=== PATIENT | male | born 1960 | race Caucasian/White ===

== ENCOUNTER 2018-07-19 09:32 | Inpatient (IN) | payer BC ==
[~2018-07-19] VITALS: Ht 185.4 cm; Wt 105.2 kg
[2018-07-19 09:50] VITALS: BP 172/104
[2018-07-19 10:24] LABS: ABSOLUTE EOSINOPHILS 0.1 thou/uL (0.0-0.7); ABSOLUTE LYMPHOCYTES 1.3 thou/uL (0.8-5.3); ABSOLUTE NEUTROPHILS 8.9 thou/uL (1.6-8.1); BASOPHILS 0.2 %; EOSINOPHILS 0.7 %; HEMATOCRIT 45.5 % (42.0-52.0); HEMOGLOBIN 15.3 gm/dL (14.0-18.0); LYMPHOCYTES 11.9 %; MCH 29.7 pg (26.0-34.0); MCHC 33.6 g/dL (28.0-37.0); MCV 88.4 fL (80.0-100.0); MONOCYTES 8.4 %; MPV 7.7 fl. (7.2-11.1); NUCLEATED RBCS 0 /100WBC; PLATELET COUNT* 410 thou/uL (150-400); POLYS 78.8 %; RBC 5.15 mil/uL (4.50-6.00); RDW-CV 13.8 % (10.5-14.5); WBC 11.3 thou/uL (4.0-11.0)
[2018-07-19 10:29] LABS: CALCIUM 9.3 mg/dL (8.5-10.1); CREATININE 0.9 mg/dL (0.6-1.3); POTASSIUM 3.6 mmol/L (3.5-5.1)
[2018-07-19 10:34] LABS: ALBUMIN 3.9 g/dL (3.4-5.0); TOTAL BILIRUBIN 0.7 mg/dL (<0.1-1.0)
[2018-07-19 11:33] LABS: ESR (SEDRATE) 27 mm/hr (0-20)
[2018-07-19 13:35] LABS: BF RBC 1769 /mm3; TOTAL CELL COUNT 16240 /mm3
[2018-07-19 13:36] LABS: BF LYMPHOCYTES 4 %; BF MONOCYTES 12 %; BF POLYS 84 %
[2018-07-19 13:37] LABS: CLARITY SLIGHTLY HAZY; SOURCE LEFT KNEE; TOTAL VOLUME 15 ml
--- NOTE | 2018-07-19 14:21 | NUR ---
PT WAS GIVEN PERCOCET AND IS NOW C/O OF A RASH ON HIS FACE. DR. VANN NOTIFIED.
[2018-07-19 14:54] VITALS: BP 127/74
[2018-07-19 15:15] VITALS: BP 136/83
--- NOTE | 2018-07-19 18:28 | NUR ---
PATIENT ARRIVED FROM ER THIS AFTERNOON. PATIENT SETTLED TO ROOM AND HISTORY, ASSESSMENT AND VITALS COMPLETED AND DOCUMENTED. PATIENT HAD BEDSIDE KNEE ASPIRATION COMPLETED WITHOUT INCIDENT. PATIENT STATES PAIN IS MUCH BETTER SINCE ASPIRATION AND DENIES NEED FOR MEDICATION AT THIS TIME. PATIENT IS UP STANDBY ASSIST. PATIENT HAS CALL LIGHT WITHIN REACH. WILL CONTINUE TO MONITOR.
[2018-07-19 18:54] LABS: SOURCE LEFT KNEE
[2018-07-19 18:56] LABS: BF RBC 1695 /mm3; CLARITY HAZY; TOTAL CELL COUNT 24009 /mm3; TOTAL VOLUME 90 ml
[2018-07-19 19:23] LABS: BF MONOCYTES 6 %; BF POLYS 94 %
[2018-07-19 21:35] VITALS: BP 141/69
--- NOTE | 2018-07-20 04:27 | NUR ---
PATIENT HAS REMAINED ALERT AND ORIENTED X 4 THROUGHOUT THE SHIFT AND RESTING AT INTERVALS ON HOURLY ROUNDS. IVF'S AND ANTIBIOTICS PER ORDERS. MEDICATED FOR PAIN X 3 TO GOOD EFFECT. LOOSENED STACEY WRAP MINAMALLY AT 0100 AND PROVIDED ICE FOR PAIN MANAGEMENT WELL. STACEY/DRESSING LEFT KNEE CLEAN AND DRY. VITAL SIGNS STABLE. NPO AT MIDNIGHT PER ORDER. CONTINUE TO MONITOR. AT BEDSIDE.
[2018-07-20 08:37] VITALS: BP 128/79
[2018-07-20 10:03] VITALS: BP 141/69
[2018-07-20 10:10] LABS: BODY FLUID PROTEIN 2.6 g/dL (())
[2018-07-20 10:10] LABS: BODY FLUID PROTEIN 2.9 g/dL (())
--- NOTE | 2018-07-20 12:00 | NUR ---
SW attempted to meet pt to complete initial assessment...pt has been off of the unit all morning. SW to continue to follow to assist with safe dc planning.
[2018-07-20 13:24] LABS: BF RBC 5124 /mm3; TOTAL CELL COUNT 13922 /mm3
[2018-07-20 13:28] LABS: CLARITY HAZY; TOTAL VOLUME 50 ml
[2018-07-20 13:48] LABS: BF LYMPHOCYTES 3 %; BF POLYS 97 %
[2018-07-20 13:51] LABS: SOURCE ASCITES
[2018-07-20 16:00] VITALS: BP 108/60
[2018-07-20 21:49] LABS: SOURCE KNEE JOINT
[2018-07-20 21:50] LABS: SOURCE KNEE JOINT
[2018-07-20 22:00] VITALS: BP 149/77
[2018-07-21 07:24] LABS: HEMATOCRIT 40.3 % (42.0-52.0); MCH 28.9 pg (26.0-34.0); MCHC 32.5 g/dL (28.0-37.0); MCV 88.8 fL (80.0-100.0); MPV 8.1 fl. (7.2-11.1); NUCLEATED RBCS 0 /100WBC; PLATELET COUNT* 384 thou/uL (150-400); RBC 4.54 mil/uL (4.50-6.00); RDW-CV 13.9 % (10.5-14.5)
--- NOTE | 2018-07-21 07:29 | NUR ---
PATIENT SLEPT MOST OF THE NIGHT. IV FLUIDS CONTINUE TO INFUSE AT 50 ML/HR. PATIENT HAS HAD NO COMPLAINTS OF PAIN. DRESSING TO LEFT KNEE REMAINS INTACT WITH HEMOVAC IN PLACE. WILL CONTINUE TO MONITOR.
[2018-07-21 07:30] LABS: CALCIUM 8.5 mg/dL (8.5-10.1); CREATININE 0.8 mg/dL (0.6-1.3); POTASSIUM 4.1 mmol/L (3.5-5.1)
[2018-07-21 07:33] LABS: HEMOGLOBIN 13.1 gm/dL (14.0-18.0)
[2018-07-21 07:50] VITALS: BP 135/75
[2018-07-21 08:10] LABS: ABSOLUTE LYMPHOCYTES 1.3 thou/uL (0.8-5.3); ABSOLUTE MONOCYTES 0.4 thou/uL (0.0-1.2); ABSOLUTE NEUTROPHILS 12.3 thou/uL (1.6-8.1); ANISOCYTOSIS 1+; PLATELET ESTIMATE ADEQUATE; POIKILOCYTOSIS 1+
--- NOTE | 2018-07-21 08:36 | OP ---
[address] [address] OPERATIVE REPORT Name: AJAY BARROW Room: [address] IN .R.#: [id number] Admission: 07/19/18 Attend Phys: El Jolly MD Discharge: Date of : 62 Report #: [id number] THIS REPORT FOR: //name// CC: Vesna Jolly DATE OF SERVICE: 07/20/2018 PREOPERATIVE DIAGNOSIS: Potential left septic arthritis of the knee. POSTOPERATIVE DIAGNOSES: Potential left septic arthritis of the knee, severe osteoarthritis to the left knee, macerated medial meniscus tear, hypertrophic synovitis/inflammatory reaction. SURGERY PERFORMED: Left knee arthroscopic lavage, 12,000 mL of normal saline with 3-compartment synovectomy, tissue cultures of the synovium and effusion cultures. SURGEON: Chapin Victoria DO WAFER CUTTER: Jeni. ANESTHESIA: General anesthetic. ANTIBIOTICS: The patient has been on antibiotics preoperatively, vancomycin and Rocephin. DRAINS: The patient has a Hemovac drain x 1 to the left knee. ESTIMATED BLOOD LOSS: Just 5 mL. COMPLICATIONS: None. GROSS FINDINGS: The patient clinically has had several serial aspirations of his left knee with rising cell counts. The patient has had so far negative crystal analysis, but not all of these are completed. He has also had increased white blood cell count as well as sed rates. The patient clinically continues to have pain subjectively to this knee. He has difficult range of motion of the knee and weightbearing pain on the left knee. The patient says this is worse than it has been in the past. SURGERY IN DETAIL: He was taken to the operating room and placed on the table, given the benefit of general anesthetic. He did have well-padded tourniquet placed on his left leg. We did not need it. Leg was placed in a knee sotomayor in standard fashion. He underwent a chlorhexidine prep and sterile draping again. Timeout was called and verified for the left knee[place] [address] OPERATIVE REPORT Name: AJAY BARROW Room: [address] IN ..#: [id number] Admission: 07/19/18 Attend Phys: El Jolly MD Discharge: Date of : 62 Report #: [id number] portal incisions were made with 11 blade scalpel. Arthroscope was put in inferolaterally. A large trocar was placed inferomedially. I ran initially 6000 mL of normal saline through the knee before the arthroscopy. At this point in time, I did arthroscopic evaluation. Knee photographs were taken to demonstrate the hyperemia of the synovium. I did a 3-compartment synovectomy next and medial meniscectomy. Much water was removed from the knee as could be. A drain was placed deep in the knee joint. Portal sites were closed with 4-0 nylon in simple fashion. Xeroform, 4 x 4s, Kerlix, soft roll, Dov wrap dressing was applied. He was transferred off table, taken to recovery in stable condition. I attest I was present for all critical aspects of surgery. Needle, instrument, sponge counts correct. <ELECTRONICALLY SIGNED> By: Chapin Victoria DO 07/21/18 0836 [id number] [id number] Victoria DO /nt
--- NOTE | 2018-07-21 14:16 | NUR ---
PT. POLITELY REFUSES O.T. EVAL DUE TO STATING HE IS INDEPENDENT GOING BACK AND FORTH FROM THE BATHROOM AND CAN COMPLETE ADLS ON HIS OWN AFTER HIS I & D YESTERDAY. RN NOTIFIED.
[2018-07-21 15:50] VITALS: BP 144/85
--- NOTE | 2018-07-21 15:59 | NUR ---
SW met with pt and pt to complete initial assessment, introduce self, and SW role. Pt was working with PT. Pt expressed that pt lives at home with and pt expressed that they do not anticipate any dc needs. SW to continue to follow.
--- NOTE | 2018-07-21 18:54 | NUR ---
PATIENT HAS BEEN A/O X 4 THIS SHIFT. HAS DENIED THE NEED FOR PAIN MEDS. IV SALINE LOCKED. TOLERATING ORAL FLUIDS WELL. PATIENT UP WITH WALKER. WORKED WITH PHYSICAL THERAPY THIS SHIFT. IV ANTIBIOTICS INFUSED. FAMILY AT BEDSIDE THROUGHOUT THE SHIFT. HEMOVAC WITH 50ML OUT THIS SHIFT. HOURLY ROUNDING COMPLETED. CALL LIGHT WITHIN REACH. WILL CONTINUE WITH PLAN OF CARE.
[2018-07-21 21:00] VITALS: BP 159/89
--- NOTE | 2018-07-22 05:38 | NUR ---
PATIENT SLEPT PART OF THE NIGHT. IV REMAINS SALINE LOCKED. DRESSING TO LEFT KNEE REMAINS INTACT WITH HEMOVAC IN PLACE. WILL CONTINUE TO MONITOR.
[2018-07-22 07:59] LABS: ABSOLUTE EOSINOPHILS 0.4 thou/uL (0.0-0.7); ABSOLUTE LYMPHOCYTES 1.9 thou/uL (0.8-5.3); ABSOLUTE MONOCYTES 0.7 thou/uL (0.0-1.2); ABSOLUTE NEUTROPHILS 5.9 thou/uL (1.6-8.1); BASOPHILS 0.5 %; EOSINOPHILS 4.2 %; HEMATOCRIT 39.4 % (42.0-52.0); LYMPHOCYTES 21.5 %; MCH 29.3 pg (26.0-34.0); MCV 88.7 fL (80.0-100.0); MONOCYTES 7.7 %; MPV 7.9 fl. (7.2-11.1); NUCLEATED RBCS 0 /100WBC; PLATELET COUNT* 401 thou/uL (150-400); POLYS 66.1 %; RBC 4.44 mil/uL (4.50-6.00); RDW-CV 13.8 % (10.5-14.5); WBC 8.9 thou/uL (4.0-11.0)
[2018-07-22 08:07] LABS: CALCIUM 8.4 mg/dL (8.5-10.1); CREATININE 0.9 mg/dL (0.6-1.3); POTASSIUM 3.6 mmol/L (3.5-5.1)
[2018-07-22 08:30] VITALS: BP 154/88
[2018-07-22 15:00] VITALS: BP 161/92
--- NOTE | 2018-07-22 19:31 | NUR ---
PATIENT HAS BEEN A/O X 4 THIS SHIFT. DENIES PAIN. SALINE LOCK PATENT AND IV ANTIBIOTICS INFUSED. UP WITH WALKER THIS SHIFT. HEMOVAC IN PLACE, 90ML OF SEROSANG DRAINAGE NOTED. PATIENT HOPEFUL TO BE DISCHARGED SOON. ORTHO FOLLOWING. FAMILY AT BEDSIDE THIS SHIFT. HOURLY ROUNDING COMPLETED. CALL LIGHT WITHIN REACH. WILL CONTINUE WITH PLAN OF CARE.
[2018-07-22 21:30] VITALS: BP 171/95
[2018-07-23 07:45] VITALS: BP 156/93
--- NOTE | 2018-07-23 07:45 | NUR ---
PATIENT SLEPT PART OF THE NIGHT. PATIENT HAS HAD AN INCREASE IN PAIN THIS SHIFT. PATIENT WAS GIVEN PAIN MEDICINE TWICE THIS SHIFT. WILL CONTINUE TO MONITOR.
--- NOTE | 2018-07-23 16:30 | NUR ---
PATIENT UP WITH WALKER, AMBULATED WITH THERAPY. HEMOVAC EMPTIED AND CHARTED PER PROTOCOL. ID SAW PATIENT THIS AFTERNOON, AWAITING CONSULTATION NOTE AND ORDERS. REFUSING PAIN MEDICATION THIS SHIFT, PATIENT INSTRUCTED TO NOTIFY NURSE WHEN NEEDING PAIN MEDICATION. STACEY WRAP REMAINS TO LEFT KNEE, PATIENT REFUSED PILLOW FOR ELEVATION.
[2018-07-23 16:50] VITALS: BP 142/79
[2018-07-23 21:30] VITALS: BP 116/68
[2018-07-24 04:47] LABS: ABSOLUTE EOSINOPHILS 0.5 thou/uL (0.0-0.7); ABSOLUTE LYMPHOCYTES 2.2 thou/uL (0.8-5.3); ABSOLUTE MONOCYTES 0.7 thou/uL (0.0-1.2); ABSOLUTE NEUTROPHILS 5.5 thou/uL (1.6-8.1); BASOPHILS 0.6 %; EOSINOPHILS 5.5 %; HEMATOCRIT 41.7 % (42.0-52.0); HEMOGLOBIN 13.8 gm/dL (14.0-18.0); LYMPHOCYTES 24.8 %; MCH 29.4 pg (26.0-34.0); MCHC 33.2 g/dL (28.0-37.0); MCV 88.7 fL (80.0-100.0); MONOCYTES 7.8 %; MPV 7.6 fl. (7.2-11.1); NUCLEATED RBCS 0 /100WBC; PLATELET COUNT* 430 thou/uL (150-400); POLYS 61.3 %; RDW-CV 13.8 % (10.5-14.5)
[2018-07-24 05:10] LABS: CALCIUM 9.2 mg/dL (8.5-10.1); CREATININE 0.9 mg/dL (0.6-1.3)
--- NOTE | 2018-07-24 05:22 | NUR ---
PATIENT SLEPT WELL DURING THIS SHIFT; AT BEDSIDE. PT WITH SALINE LOCK IN LT FOREARM; PATENT. PT REQUESTED PAIN MEDICATION X3; PERCOCET 1 TAB GIVEN EACH TIME. PT SAID HE HAS VOIDED SEVERAL TIMES BUT DID NOT VOID PER URINAL INSTRUCTED. PT HAS HEMOVAC IN LT KNEE; 170ML OUT ON THIS SHIFT. PT DENIES NEEDS AT THIS TIME. FREQUENTLY USED ITEMS AND CALL LIGHT WITHIN REACH. SIDERAILS UPX2. WILL CONTINUE TO MONITOR.
[2018-07-24 08:00] VITALS: BP 163/88
--- NOTE | 2018-07-24 08:20 | CON ---
[address] [address] CONSULTATION Name: AJAY BARROW Room: [address] IN .R.#: [id number] Admission: 07/19/18 Attend Phys: El Jolly MD Discharge: Date of : 62 Report #: [id number] THIS REPORT FOR: //name// CC: Vesna Jolly DATE OF SERVICE: 07/23/2018 INFECTIOUS DISEASE CONSULTATION: ATTENDING PHYSICIAN: Dr. Jolly. REASON FOR EVALUATION: Suspected septic left knee arthritis. HISTORY OF PRESENT ILLNESS: Chart reviewed, the patient examined. The patient is a 58-year-old without significant medical history who presented on 07/19/2017 with complaints of fairly abrupt onset of acute on chronic pain associated with his left lower extremity. He has ongoing issues. He dates since 1980s. It is constantly painful; however, he has always been able to bear weight at that point. Last week, he was again unable to bear weight. It is not clear if he had any systemic illness. Denied any fevers or chills. Appetite was good. No pulmonary or gastrointestinal related complaints. He was evaluated to exclude the possibility of crystal arthropathy, underwent aspiration which showed roughly 14,000 white cells, 97% polys. Crystal analysis was unremarkable. He did have operative debridement with arthroscopic lavage of 12 liters of saline, 3 compartment synovectomy. Cultures were collected at that time. Thus far, they are unrevealing. He was empirically started on antimicrobials, initially with vancomycin, switched to ceftriaxone. It is somewhat improved to this point. He does have a drain in place. ALLERGIES: LISTED TO PENICILLIN AND FENTANYL. CURRENT MEDICATIONS: Include hydralazine, aspirin, enoxaparin, ceftriaxone, ondansetron, oxycodone, ketorolac. PAST MEDICAL HISTORY: Longstanding left knee osteoarthritis, otherwise unremarkable. SOCIAL HISTORY: Nonsmoker, no ethanol, no illicit drug use. FAMILY HISTORY: Noncontributory. REVIEW OF SYSTEMS: Otherwise, 10-point review of systems unremarkable, exception noted above in history of present illness. PHYSICAL EXAMINATION: [place] [address] CONSULTATION Name: AJAY BARROW Room: [address] IN [facility]#: [id number] Admission: 07/19/18 Attend Phys: El Jolly MD Discharge: Date of : 62 Report #: [id number] GENERAL: He is alert, cooperative, appears to be well nourished, is in mild distress secondary to his knee pain. VITAL SIGNS: Temperature 97.7, pulse 57, respirations 18, blood pressure 156/93. SKIN: Warm, dry, no rashes. HEENT: Normocephalic. Extraocular muscles intact. NECK: Supple. LUNGS: Clear to auscultation bilaterally. HEART: Regular rate and rhythm without murmur. ABDOMEN: Soft, nontender, nondistended. EXTREMITIES: Left knee has a compression dressing with a drain in place, this was not disturbed. GENITOURINARY: Deferred. RECTAL: Deferred. LABORATORY DATA: Several operative cultures were sterile thus far. Electrolytes: Sodium 142, potassium 3.6, chloride 107, bicarbonate is 30, BUN and creatinine 10 and 0.9. CBC: White count of 8.9, H and H 13.0 and 39.4, platelets of 401. Blood cultures are sterile thus far. ASSESSMENT AND PLAN: Inflammatory process involving the left knee. Certainly, infectious etiology is consideration, although there is no growth in culture thus far. We will continue empiric therapy. With an absence of alternative diagnosis, it clearly does not suggest crystal arthritis. I think we are left with treating empirically with antimicrobials. We will discuss with Orthopedic Surgery. <ELECTRONICALLY SIGNED> By: Timoteo Veronica MD 07/24/18 0820 1118 [id number] Veronica MD /nt
--- NOTE | 2018-07-24 15:23 | NUR ---
LEXY faxed information and referral to [facility] to check on pt insurance benefits for IV abx. fax [phone] ph [phone]. LEXY to continue to follow to assist with safe dc planning.
[2018-07-24 16:21] VITALS: BP 120/58
--- NOTE | 2018-07-24 16:48 | NUR ---
PATIENT NPO INTO AFTERNOON FOR POSSIBLE LEFT KNEE SURGERY. NURSE NOTIFIED NO SURGERY TODAY AND WILL REASSESS TOMORROW. PATIENT REG DIET, NPO AFTER MIDNIGHT. PATIENT C/O INABILITY TO VOID AGAIN THIS AFTERNOON. PATIENT BLADDER SCANNED AND 374MLS NOTED. PATIENT STATED AFTER BLADDER SCAN HE VOIDED 3 TIMES. PATIENT BLADDER SCANNED AGAIN AND 231MLS NOTED. FLOMAX STARTED THIS AFTERNOON AND DR. JACOBSEN NOTIFIED THAT PATIENT CONCERNED THAT ROCEPHIN CAUSING INABILITY TO VOID. DR. FRIAS ROUNDED ON PATIENT THIS AFTERNOON AND NOTIFIED OF CONCERN. HEMOVAC REMAINS PLACE TO LEFT KNEE WITH SEROSANGINOUS DRAINAGE NOTED.
[2018-07-24 22:03] VITALS: BP 124/60
[2018-07-25 03:52] LABS: ABSOLUTE EOSINOPHILS 0.5 thou/uL (0.0-0.7); ABSOLUTE LYMPHOCYTES 2.1 thou/uL (0.8-5.3); ABSOLUTE MONOCYTES 0.7 thou/uL (0.0-1.2); ABSOLUTE NEUTROPHILS 4.3 thou/uL (1.6-8.1); BASOPHILS 0.6 %; EOSINOPHILS 6.6 %; HEMATOCRIT 38.7 % (42.0-52.0); LYMPHOCYTES 27.2 %; MCH 29.4 pg (26.0-34.0); MCHC 33.6 g/dL (28.0-37.0); MCV 87.5 fL (80.0-100.0); MONOCYTES 8.7 %; MPV 7.4 fl. (7.2-11.1); NUCLEATED RBCS 0 /100WBC; PLATELET COUNT* 416 thou/uL (150-400); POLYS 56.9 %; RBC 4.42 mil/uL (4.50-6.00); RDW-CV 13.6 % (10.5-14.5); WBC 7.6 thou/uL (4.0-11.0)
[2018-07-25 04:03] LABS: CALCIUM 8.8 mg/dL (8.5-10.1); POTASSIUM 3.7 mmol/L (3.5-5.1)
[2018-07-25 07:40] VITALS: BP 153/83
--- NOTE | 2018-07-25 10:04 | NUR ---
SW received message from Clarice at [facility] stating that pt is covered at 100% for IV abx. SW to continue to follow to assist with safe dc planning.
[2018-07-25 10:43] VITALS: BP 141/69
[2018-07-25 14:24] VITALS: BP 158/98
--- NOTE | 2018-07-25 17:18 | NUR ---
PATIENT HAD WASHOUT OF LEFT KNEE THIS AM. DRESSING D/I AND HEMOVAC REMAINS IN PLACE. IV REPLACED TO RIGHT FOREARM IN OR WITH US. HYDROCODONE PRN FOR LEFT KNEE PAIN. PATIENT HAS VOIDED SINCE SURGERY, FLOMAX HS.
[2018-07-25 22:45] VITALS: BP 150/83
--- NOTE | 2018-07-26 06:36 | NUR ---
PATIENT SLEPT WELL DURING THIS SHIFT; AT BEDSIDE. PT UP TO BATHROOM WITH USE OF WALKER. PT WITH HEMOVAC IN LT KNEE WITH SERIOUSANGIOUS DRAINAGE. PT DENIES PAIN SAYING IT FEELS MUCH BETTER SINCE THE LAVAGE DONE YESTERDAY. PT SAID HE IS VOIDING MUCH BETTER. PT DENIES NEEDS AT THIS TIME. FREQUENTLY USED ITEMS AND CALL LIGHT WITHIN REACH. SIDERAILS UPX2. WILL CONTINUE TO MONITOR.
[2018-07-26 08:25] VITALS: BP 159/82
[2018-07-26 17:06] VITALS: BP 126/71
--- NOTE | 2018-07-26 18:17 | NUR ---
PATIENT RESTING IN BED. PATIENT DENIES ANY PAIN. PATIENT HAS HEMOVAC IN PLACE TO LEFT KNEE. PATIENT HAS GOOD APPETITE. PATIENT DENIES ANY NEEDS AT THIS TIME. CALL LIGHT WITHIN REACH. WILL CONTINUE TO MONITOR.
[2018-07-26 20:00] VITALS: BP 106/78
--- NOTE | 2018-07-27 04:48 | NUR ---
ASSUMED CARE OF PT AT 1900 PT ALERT AND ORIENTED X4 VS AND ASSSSMENT AT BASELINE. [facility] CHECKS TO LLE WNL PT HAD PAIN MEDS TWICE THEN SLEPT THROUGH THE NIGHT. WILL CONTINUE PLAN OF CARE.
[2018-07-27 08:45] VITALS: BP 163/93
--- NOTE | 2018-07-27 12:54 | NUR ---
O.T. RECIEVED ADDITONAL EVAL AND TX ORDERS DURING THIS PT'S STAY. PT. CONTINUES TO DECLINE O.T. SERVICES STATING HE IS AT HIS BASELINE FOR ADLS AND ISN'T HAVING ANY CONCERNS. THEREFORE, PT. WILL BE DISMISSED FROM O.T. [facility].
--- NOTE | 2018-07-27 14:35 | NUR ---
SHARED SERVICES MANAGER INFORMED BY THE RN IN-CHARGE OF THE PATIENT THAT THE PATIENT DECLINED THE PICC LINE, AND IS AWAITING I.D. RECOMMENDATIONS. CITLALY SPOKE TO LAUREN WITH [facility] TO INFORM OF THIS INFO AND HE STATES THAT THEY 'WILL LEAVE THE PATIENT ON THE POSSIBLE WEEKEND ADMISSION LIST AT THIS TIME, AND PATIENT IS COVERED AT 100%'. [facility] WILL NEED TO BE CONTACTED AND ABT ORDERS WILL NEED TO BE FAXED AT D/C IF PATIENT IS TO D/C WITH HOME ABT INFUSIONS. CITLALY WILL REMAIN AVIALABLE TO ASSIST AND FOLLOW NEEDED. [facility] PHONE: [phone] FAX: [phone] OR JAH DOWNEY PHONE: [phone]
[2018-07-27 15:00] VITALS: BP 158/93
--- NOTE | 2018-07-27 18:49 | NUR ---
PATIENT HAS BEEN A/O X 4 THIS SHIFT. HAS DENIED THE NEED FOR PAIN MEDS. IV SALINE LOCKED AND IV ANTIBIOTICS INFUSED. PATIENT REFUSED PICC LINE THIS SHIFT, DR HALL AWARE. UP WITH WALKER IN THE ROOM. HEMOVAC IN PLACE TO LEFT KNEE. DRESSING INTACT. PATIENT HOPEFUL TO BE DISCHARGED SOON. FAMILY AT BEDSIDE THIS SHIFT. HOURLY ROUNDING COMPLETED. CALL LIGHT WITHIN REACH. WILL CONTINUE WITH PLAN OF CARE.
[2018-07-27 20:00] VITALS: BP 169/96
--- NOTE | 2018-07-28 04:32 | NUR ---
PT REMAINED A&Ox4 THROUGHOUT SHIFT. VITALS STABLE. IV IN R FA PATENT, SL. UP AD MAURO. DRESSING IS CLEAN, DRY AND INTACT. PAIN CONTROLLED WITH PERCOCET. DAUGHTER IN ROOM. HOURLY ROUNDING COMPLETE. CALL LIGHT WITHIN REACH. WILL CONTINUE TO MONITOR.
[2018-07-28 05:27] LABS: HEMATOCRIT 40.4 % (42.0-52.0); HEMOGLOBIN 13.3 gm/dL (14.0-18.0); MCH 29.1 pg (26.0-34.0); MCHC 32.9 g/dL (28.0-37.0); MCV 88.5 fL (80.0-100.0); MPV 7.3 fl. (7.2-11.1); RBC 4.56 mil/uL (4.50-6.00); RDW-CV 13.7 % (10.5-14.5); WBC 7.4 thou/uL (4.0-11.0)
[2018-07-28 05:43] LABS: CALCIUM 8.8 mg/dL (8.5-10.1); CREATININE 0.9 mg/dL (0.6-1.3); MAGNESIUM 2.1 mg/dL (1.8-2.4); POTASSIUM 3.9 mmol/L (3.5-5.1)
[2018-07-28 08:00] VITALS: BP 140/80
--- NOTE | 2018-07-28 16:46 | NUR ---
PATIENT A&O X4, ON RA. PATIENT UP TOLERATED PATIENT RECEIVED ROCEPHINE IN THE AM. PATIENT VISITED BY FAMILY. PATIENT RECIEVED OXYCODONE 1 TAB FOR PAIN @ 1311, AT REASSEMENT, PATIENT STATED IT HELPED WITH HIS PAIN. PATIENT UNABLE TO RATE PAIN NUMERICALLY, ATTEMPTED RATING PAIN FOR PATIENT, WAS ADVISED IT WAS BEST FOR PATIENT TO RATE HIS PAIN IF ABLE TO. PATIENT PLESANT AND VERY APPROPRIATE THROUGH SHIFT.
[2018-07-28 17:14] VITALS: BP 126/75
[2018-07-28 20:00] VITALS: BP 144/97
--- NOTE | 2018-07-29 04:40 | NUR ---
PT REMAINED A&Ox4 THROUGHOUT SHIFT. VITALS STABLE. DRAIN IN L KNEE PATENT. PAIN CONTROLLED WITH PERCOCET. IV IN R FA PATENT, SL. PT DAUGHTER IN ROOM. CALL LIGHT WITHIN REACH. HOURLY ROUNDING COMPLETE. WILL CONTINUE TO MONITOR.
[2018-07-29 07:40] VITALS: BP 115/77
[2018-07-29 15:47] VITALS: BP 101/69
--- NOTE | 2018-07-29 16:32 | NUR ---
ORTHO HERE THIS AM AND HEMO VAC TO LEFT KNEE DC'D, DRESSING PLACED AND REMAINS DRY AND INTACT. LEFT KNEE SWOLLEN BUT NO INCREASE NOTED. PERCOSET GIVEN X1 FOR PAIN. PATIENT UP TO BATHROOM, PERFORMED SELF CARE. PATIENT HOPING TO DISCHARGE HOME SOON. AWAITING CULTURE RESULTS.
[2018-07-29 20:00] VITALS: BP 136/70
--- NOTE | 2018-07-30 04:53 | NUR ---
PT REMAINED A&Ox4 THROUGHOUT SHIFT. VITALS STABLE. PAIN CONTROLLED WITH PERCOCET. MINIMAL SWELLING IN L KNEE. DRESSING IS CLEAN, DRY AND INTACT. UP WITH A WALKER. CALL LIGHT WITHIN REACH. HOURLY ROUNDING COMPLETE. WILL CONTINUE TO MONITOR.
[2018-07-30 08:00] VITALS: BP 142/82
[2018-07-30] MEDS ORDERED: ASPIR 8181 MG PO (09:08)
[2018-07-30] MEDS ORDERED: MELATONIN3 MG PO (09:08)
[2018-07-30] MEDS ORDERED: FLOMAX0.4 MG PO (09:08)
[2018-07-30] MEDS ORDERED: PERCOCET 7.5-31 EACH PO (09:08)
--- NOTE | 2018-07-30 11:02 | NUR ---
PT.TO DISCHARGE HOME TODAY. CALLED IN PRESCRIPTION WRITTEN FOR ZYVOX, TO [facility] PHARMACY. COPAY IS $12 AND NO PRIOR AUTH NEEDED. INFORMED AND PT. PT.FEELS HE CAN CHANGE HIS KNEE DRESSING BY HIMSELF. TOLD HIM NURSE WOULD GIVE HIM SOME DRESSINGS/BANDAIDS. EDUCATD TO WASH HANDS BEFORE DRESSING CHANGES. JAH SOSA INFORMED OF ABOVE.
[2018-07-30 13:02] VITALS: BP 142/82
--- NOTE | 2018-07-30 13:07 | NUR ---
Nutrition: Pt assessed for LOS. Admitted with septic knee. Wt: 232#. Regular diet. Alb 2.9. Labs/hx noted. Appears at low nutrition risk.
[2018-07-30 13:14] VITALS: BP 142/82
[2018-07-30] MEDS ORDERED: ZYVOX600 MG PO (13:19)
--- NOTE | 2018-07-30 14:33 | NUR ---
PT IS ALERT AND ORIENTED X 4. DRESSING ON LEFT KNEE-C/D/I. SWELLING NOTED RIGHT KNEE. INDICATED MINIMAL KNEE PAIN /. DENIES NAUSEA. UP INDEPENDENTLY USING A WALKER TO BATHROOM. DISCHARGE INSTRUCTIONS GIVEN ALONG WITH PRESCRIPTIONS. IV REMOVED. PT LEFT WITH STAFF AND PERSONAL BELONGINGS TO LEAVE WITH SON BY PRIVATE CAR @ 2850.
[2018-07-30 14:40] VITALS: BP 142/82
--- NOTE | 2018-07-30 14:42 | OP ---
[address] [address] OPERATIVE REPORT Name: AJAY BARROW Room: [address]#: [id number] Admission: 07/19/18 Attend Phys: El Jolly MD Discharge: 07/30/18 Date of : 62 Report #: [id number] THIS REPORT FOR: //name// CC: Vesna Jolly DICTATED BY: Robby Carrera DO DATE OF SERVICE: 07/25/2018 PREOPERATIVE DIGNOSIS: Left knee septic arthritis. POSTOPERATIVE DIAGNOSIS: Left knee septic arthritis. PROCEDURE: Left knee arthroscopic lavage with 3 compartment synovectomy. SURGEON: Chapin Victoria DO. ASSISTANTS: Jerry Ngo DO. Robby Carrera DO, resident. ANESTHESIA: General. FLUIDS: Crystalloid. ESTIMATED BLOOD LOSS: Minimal. DRAINS: Medium Hemovac. SPECIMENS: Two synovial tissue samples removed. COMPLICATIONS: None. CONDITION: Stable. DISPOSITION: PACU to Med/Surg. PREOPERATIVE ANTIBIOTICS: Scheduled Rocephin. INDICATIONS: A 58-year-old male admitted on 07/19/2018 with ongoing left knee pain. Cultures were drawn and was taken for an arthroscopic lavage and ID with synovectomy with a drain placed over the course of the next few days. The patient had significant drainage into Hemovac and was taken back for repeat lavage and synovectomy today for a concern for continued septic arthritis of the left knee. DESCRIPTION OF PROCEDURE: The patient was taken to the OR and placed under [facility] [address] [place] [address] OPERATIVE REPORT Name: AJAY BARROW Room: [address] IN [facility]#: [id number] Admission: 07/19/18 Attend Phys: El Jolly MD Discharge: 07/30/18 Date of : 62 Report #: [id number] general anesthesia, timeout was performed. Left knee was sterilely prepped in a standard fashion. Lateral incision was made. A trocar was placed. Camera was placed through the trocar. A medial incision was made with a trocar placed medially for outflow. At that time, 6 L of saline were lavaged through the left knee and a tissue grasper was placed through the medial portal and two samples of synovial tissues were removed and sent to pathology and then 3 more liters of saline were then lavaged through the left knee. The trocars were removed. Portals were closed with 3-0 nylon. Sterile dressing was placed. The patient was awakened from general anesthesia, transferred off the OR table to PACU. All sponge and needle counts were correct x 2. <ELECTRONICALLY SIGNED> By: Chapin Victoria DO 07/30/18 1442 1329 [id number] Victoria, DO /nt
== END 2018-07-30 13:40 | disposition home or self-care (01) | DRG 488 ==
LOC: M.ERS 09:32 → M.3W 12:31 → M.TBA-ER 12:31 → M.3W 15:13
PROVIDERS: Emergency Medicine Emergency Medical Services; Internal Medicine; Orthopaedic Surgery; ADMIT Family Medicine
PROC: 0S9D3ZZ Drainage of Left Knee Joint, Percutaneous Approach (ICD-10-PCS; principal; 2018-07-19)
PROC: 0SBD4ZZ Excision of Left Knee Joint, Percutaneous Endoscopic Approach (ICD-10-PCS; 2018-07-20)
PROC: 3E1U38Z Irrigation of Joints using Irrigating Substance, Percutaneous Approach (ICD-10-PCS; 2018-07-25)
DX: M17.12 Unilateral primary osteoarthritis, left knee (principal); M00.9 Pyogenic arthritis, unspecified; N18.2 Chronic kidney disease, stage 2 (mild); S83.242A Other tear of medial meniscus, current injury, left knee, initial encounter; M10.072 Idiopathic gout, left ankle and foot; M67.262 Synovial hypertrophy, not elsewhere classified, left lower leg; R33.9 Retention of urine, unspecified; M25.462 Effusion, left knee; Y93.89 Activity, other specified; X58.XXXA Exposure to other specified factors, initial encounter; Y92.89 Other specified places as the place of occurrence of the external cause; Y99.8 Other external cause status; Z79.82 Long term (current) use of aspirin; Z79.899 Other long term (current) drug therapy; Z88.0 Allergy status to penicillin; Z88.8 Allergy status to other drugs, medicaments and biological substances

== ENCOUNTER → 2018-08-22 | Outpatient (CLI) | payer BC ==
[~2018-08-22] MED LIST: ASPIR 8181 MG PO; FLOMAX0.4 MG PO; MELATONIN3 MG PO; PERCOCET 7.5-31 EACH PO; ZYVOX600 MG PO
[2018-08-22 14:17] LABS: HEMATOCRIT 44.9 % (42.0-52.0); MCH 29.2 pg (26.0-34.0); MCHC 33.4 g/dL (28.0-37.0); MCV 87.6 fL (80.0-100.0); MPV 7.4 fl. (7.2-11.1); RBC 5.12 mil/uL (4.50-6.00); RDW-CV 13.7 % (10.5-14.5); WBC 6.5 thou/uL (4.0-11.0)
[2018-08-22 16:00] LABS: CLARITY CLOUDY; TOTAL VOLUME 40 ml
[2018-08-22 16:02] LABS: BF RBC 94150 /mm3; TOTAL CELL COUNT 380 /mm3
[2018-08-22 16:04] LABS: SOURCE SYNOVIAL
[2018-08-22 16:16] LABS: BF EOSINOPHILS 2 %; BF LYMPHOCYTES 29 %; BF MONOCYTES 11 %; BF POLYS 58 %; BF TISSUE 4 /100 WBC
[2018-08-23 11:11] LABS: BODY FLUID PROTEIN 3.2 g/dL (())
[2018-08-24 07:45] LABS: SOURCE LEFT KNEE
== END ==
LOC: M.LAB 14:00
PROVIDERS: Orthopaedic Surgery
DX: M71.38 Other bursal cyst, other site (principal); M25.562 Pain in left knee

== ENCOUNTER 2019-10-18 08:52 | Emergency (ER) | payer OTHER ==
[~2019-10-18] VITALS: Ht 185.4 cm; Wt 113.4 kg
[2019-10-18 09:33] LABS: CALCIUM 8.8 mg/dL (8.5-10.1); CREATININE 1.1 mg/dL (0.6-1.3); POTASSIUM 3.8 mmol/L (3.5-5.1)
[2019-10-18 09:39] LABS: URINE BILIRUBIN NEGATIVE (Negative); URINE BLOOD 3+ (Negative); URINE CLARITY CLEAR; URINE COLOR YELLOW; URINE GLUCOSE-RANDOM NEGATIVE (Negative); URINE KETONES NEGATIVE (Negative); URINE LEUKOCYTES-REFLEX NEGATIVE (Negative); URINE NITRITE-REFLEX NEGATIVE (Negative); URINE PROTEIN NEGATIVE (Negative); URINE UROBILINOGEN 0.2 E.U./dl (0.2-1.0)
[2019-10-18 09:45] LABS: SQUAMOUS 0-3 Few /LPF (0-3); URINE WBC-REFLEX 0-5 Rare /HPF (0-5)
[2019-10-18 09:46] LABS: BACTERIA-REFLEX 1-9 Few /HPF (None Seen); CRYSTALS None Seen /LPF (None Seen); HYALINE CASTS 0-3 Few /LPF (None Seen); MUCUS 4-6 Moderate strn/LPF (None Seen)
[2019-10-18] MEDS ORDERED: BACTRIM DS TAB1 EAC1 PO (09:49)
[2019-10-18 10:00] VITALS: BP 140/86
== END 2019-10-18 10:00 | disposition home or self-care (01) ==
LOC: M.ERS 08:52
PROVIDERS: Emergency Medicine Emergency Medical Services
DX: N39.0 Urinary tract infection, site not specified (principal); R33.9 Retention of urine, unspecified; N18.2 Chronic kidney disease, stage 2 (mild); Z88.0 Allergy status to penicillin; Z88.6 Allergy status to analgesic agent